=== PATIENT | female | born 1985 | race Hispanic/Latino ===

== ENCOUNTER → 2019-09-09 15:04 | Outpatient (CLI) | payer OTHER, SELFPAY ==
[2019-09-10 12:32] LABS: Strep Grp B PCR NEG for Grp B Strep
== END ==
PROVIDERS: PCP Naturopath; Visit Provider Obstetrics & Gynecology
DX: Z34.83 Encounter for supervision of other normal pregnancy, third trimester (principal)
CPT/HCPCS: 87653

== ENCOUNTER 2019-09-20 13:16 | Observation (INO) | payer OTHER, SELFPAY ==
--- NOTE | 2019-09-20 16:04 | PM.OBTRLD ---
Visit Information Visit Information Date of evaluation: 09/20/19 Primary OB Provider: Yen Tony Reason for Evaluation: Yes non-stress test Comments/Additional reasons for admission: This patient is a 34yo 002 at 35 and 1 presenting to labor and delivery emergently from clinic after being found to have a heart rate in the 90s at the end of a BPP. Patient had an 8/ BPP in the office, repeat heart rate check of 93 prompted transfer to Labor and delivery for NST. Patient otherwise feeling well, no complaints obstetrical or otherwise, complicated only by late transfer of care. Patient has a history of 2 prior vaginal deliveries. [facility] Medical History Heart murmur (Acute) Surgical History [place] teeth removed (Acute ~2004) Family History Mother Heart disease Kidney disease Autoimmune disease Father Heart disease Hypertension H/O mitral valve replacement Grandmother Heart disease Diabetes mellitus Hypertension Grandfather Prostate CA Kidney disease Grandfather No problems noted. Social History marital status: household members: spouse and children pets and animals: Yes (Dog) education level: master's degree occupational status: employed current occupational exposures/hazards: No special alfonso needs: No Review of Systems Constitutional Constitutional: Reports system reviewed and no additional complaints, except as documented Cardiovascular Cardiovascular: Reports system reviewed; no additional complaints, except as documented Respiratory Respiratory: Reports system reviewed and no additional complaints, except as documented Gastrointestinal Gastrointestinal: Reports system reviewed and no additional complaints, except as documented Genitourinary Genitourinary: Reports system reviewed and no additional complaints, except as documented Exam Vital Signs (past 8 hours): 134/77, HR 84 Const General: cooperative, healthy appearing and comfortable GI Palpation: soft and No tender Evaluation Evaluation Baseline heart rate: 130 Variability: Average (6-10) monitor accelerations: Present monitor decelerations: Absent Category of Tracing: I Cervical dilation (cm): 0 Comments: Periods of prolonged accels and marked variability early in monitoring period, resolved to above. Diagnosis, Plan/Disposition Plan/Disposition Plan: Patient with reassuring testing, suspect initial measurement as variable in the setting of copious movement. Patient educated on kick counts and discharged with scheduled outpatient followup. OB Disposition: home
== END 2019-09-20 17:23 | disposition home or self-care (01) ==
PROVIDERS: Admitting Provider Obstetrics & Gynecology; PCP Naturopath; Visit Provider Obstetrics & Gynecology
DX: O36.8330 Maternal care for abnormalities of the fetal heart rate or rhythm, third trimester, not applicable or unspecified (principal); Z3A.35 35 weeks gestation of pregnancy
CPT/HCPCS: 59025; G0378; G0379

== ENCOUNTER 2019-10-04 14:28 | Observation (INO) | payer OTHER, SELFPAY ==
[2019-10-04 15:17] LABS: Add Manual Diff / Slide Review NO; Basophils Absolute Auto 0 /uL (0-100); Basophils Percent Auto 0.4 % (0-2); Eosinophils Absolute Auto 0 /uL (0-450); Eosinophils Percent Auto 0.3 % (2-4); Hematocrit 37.4 % (36-46); Hemoglobin 12.5 g/dL (12.0-16.0); Lymphocytes Absolute Auto 1700 /uL (1100-4500); Lymphocytes Percent Auto 18.2 % (25-40); Mean Corpuscular HGB Conc 33.6 % (30-36); Mean Corpuscular Hemoglobin 30.3 PG (26-34); Mean Corpuscular Volume 90.3 fL (80-100); Monocytes Absolute Auto 400 /uL (0-900); Monocytes Percent Auto 4.2 % (3-14); Neutrophils Absolute Auto 7000 /uL (1500-7000); Neutrophils Percent Auto 76.9 % (50-75); Platelet Count 186 X10^3/uL (150-400); Red Blood Cell Count 4.14 X10^6/uL (4.0-5.2); Red Cell Distribution Width 14.3 % (11.6-14.8); White Blood Cell Count 9.1 X10^3/uL (4.5-11.0)
[2019-10-04 15:34] LABS: Aspartate Aminotransferase 30 IU/L (14-36); BUN Creatinine Ratio 21.3 (6-22); Blood Urea Nitrogen 17 mg/dL (7-17); Estimated Glomerular Filt Rate > 60.0 mL/min (>60); Uric Acid 5.1 mg/dL (2.5-6.2)
[2019-10-04 16:05] LABS: Protein (Total) Urine Random 10 mg/dL (0-12); Protein Creatinine Ratio Urine 0.23 GRAM/24H
--- NOTE | 2019-10-04 19:48 | PM.OBTRLD ---
Visit Information Visit Information Date of evaluation: 10/04/19 Primary OB Provider: Yen Tony Reason for Evaluation: Yes other Comments/Additional reasons for admission: This patient is a 34yo @38+5 presenting from the office for evaluation for gestational hypertension after blood pressure of 150s over 80s. The patient reports increased facial and hand swelling, headaches this morning that resolved, but no obstetrical complaints. She denies visual changes or right upper quadrant pain. She has no history of -induced or other hypertension. His had an otherwise uncomplicated . [facility] Social History marital status: household members: spouse and children pets and animals: Yes (Dog) education level: master's degree occupational status: employed current occupational exposures/hazards: No special alfonso needs: No Smoking Status: Never smoker Review of Systems Constitutional Constitutional: Reports as per HPI Gastrointestinal Gastrointestinal: Reports as per HPI Genitourinary Genitourinary: Reports as per HPI Exam Vital Signs (past 8 hours): Blood pressures 120s to 130s/80s, Objective Labs Result Diagrams: 10/04/19 14:50 10/04/19 14:50 Labs: Laboratory Results - last 24 hr 10/04/19 10/04/19 10/04/19 14:50 14:50 14:50 WBC 9.1 RBC 4.14 Hgb 12.5 Hct 37.4 MCV 90.3 MCH 30.3 MCHC 33.6 RDW 14.3 Plt Count 186 Neut % (Auto) 76.9 H Lymph % (Auto) 18.2 L [place] % (Auto) 4.2 Eos % (Auto) 0.3 L Baso % (Auto) 0.4 Neut # (Auto) 7000 Lymph # (Auto) 1700 [place] # (Auto) 400 Eos # (Auto) 0 Baso # (Auto) 0 BUN 17 Creatinine 0.80 Estimated GFR > 60.0 BUN/Creatinine Ratio 21.3 Uric Acid 5.1 AST 30 U Random Total Protein 10 Urine Creatinine 43.0 Protein/Creatinin Ratio 0.23 Evaluation Evaluation Baseline heart rate: 140 Variability: Average (6-10) monitor accelerations: Present monitor decelerations: Absent Category of Tracing: I Laboratory results: Laboratory Tests 10/04/19 10/04/19 10/04/19 14:50 14:50 14:50 WBC 9.1 RBC 4.14 Hgb 12.5 Hct 37.4 MCV 90.3 MCH 30.3 MCHC 33.6 RDW 14.3 Plt Count 186 Neut % (Auto) 76.9 H Lymph % (Auto) 18.2 L [place] % (Auto) 4.2 Eos % (Auto) 0.3 L Baso % (Auto) 0.4 Neut # (Auto) 7000 Lymph # (Auto) 1700 [place] # (Auto) 400 Eos # (Auto) 0 Baso # (Auto) 0 BUN 17 Creatinine 0.80 Estimated GFR > 60.0 BUN/Creatinine Ratio 21.3 Uric Acid 5.1 AST 30 U Random Total Protein 10 Urine Creatinine 43.0 Protein/Creatinin Ratio 0.23 Comments: 06/13 BPP, NEYMAR 7.1 Diagnosis, Plan/Disposition Plan/Disposition Plan: Patient does not currently meet criteria for gestational hypertension, with no elevated blood pressures 4 hours apart, normal labs, normal testing. Discussed with patient that she should return tomorrow for blood pressure check, and should return if her symptoms develop or if new complaints arise. Patient vocalized understanding of risks and benefits. Discussed with patient that if she meets criteria, induction is indicated. OB Disposition: home
== END 2019-10-04 17:15 | disposition home or self-care (01) ==
PROVIDERS: Admitting Provider Obstetrics & Gynecology; PCP Naturopath; Visit Provider Obstetrics & Gynecology
DX: O26.893 Other specified pregnancy related conditions, third trimester (principal); R03.0 Elevated blood-pressure reading, without diagnosis of hypertension; Z3A.39 39 weeks gestation of pregnancy
CPT/HCPCS: 36415; 59025; 59050; 76815; 82570; 84156; 84450; 84550; 85025; G0378; G0379

== ENCOUNTER 2019-10-05 09:06 | Observation (INO) | payer OTHER, SELFPAY ==
--- NOTE | 2019-10-05 10:29 | PM.OBTRLD ---
Visit Information Visit Information Date of evaluation: 10/05/19 Primary OB Provider: Yen Tony Reason for Evaluation: Yes non-stress test Comments/Additional reasons for admission: This patient is a 34yo P2 @38+6 presenting for an NST and blood pressure check. The patient reports mild PLATA this AM that resolved with food, unchanged swelling, visual changes only transiently on standing from leaning over, and no other obstetrical complaints. The patient has had one BP during this admission that is 140 systolic, making the diagnosis of gestational hypertension, but had labs <24 hours ago and did not meet diagnostic criteria for preeclampsia. The patient is aware of the risks of gestational hypertension and preeclampsia at term, and strongly desires to defer induction through the weekend until the arrival of her spouse on Monday. We discussed precautions for return including persistent PLATA, visual changes, decreased movement, or signs of labor, and the patient vocalized understanding. [facility] Medical History Heart murmur (Acute) Surgical History [place] teeth removed (Acute ~2004) Family History Mother Heart disease Kidney disease Autoimmune disease Father Heart disease Hypertension H/O mitral valve replacement Grandmother Heart disease Diabetes mellitus Hypertension Grandfather Prostate CA Kidney disease Grandfather No problems noted. Social History marital status: household members: spouse and children pets and animals: Yes (Dog) education level: master's degree occupational status: employed current occupational exposures/hazards: No special alfonso needs: No Review of Systems Constitutional Constitutional: Reports system reviewed and no additional complaints, except as documented Cardiovascular Cardiovascular: Reports system reviewed; no additional complaints, except as documented Respiratory Respiratory: Reports system reviewed and no additional complaints, except as documented Gastrointestinal Gastrointestinal: Reports system reviewed and no additional complaints, except as documented Genitourinary Genitourinary: Reports system reviewed and no additional complaints, except as documented Exam Const General: cooperative, healthy appearing and comfortable Other: welling visibly less than yesterday Resp Effort & Inspection: normal respiratory effort Auscultation: clear to auscultation bilaterally Cardio Rate: regular rate Rhythm: regular rhythm GI Palpation: soft and No tender Evaluation Evaluation Baseline heart rate: 140 Variability: Average (6-10) monitor accelerations: Present monitor decelerations: Variable (x1) Category of Tracing: I Comments: BPP 8/, NEYMAR 5.1, cephalic presentation Diagnosis, Plan/Disposition Plan/Disposition Plan: This patient has a diagnosis of gestational hypertension, with a decreasing NEYMAR. However, the patient does not meet diagnostic criteria for preeclampsia, and has reassuring features during her testing today and an NEYMAR of 5.1. I discussed with the patient at length that the ACOG guideline would be to deliver since she is at term, and my concerns about her clinical trajectory and the risks of being . We also discussed that there are reassuring features such as the moderate variability and accels on EFM, the NEYMAR remaining above 5, and the otherwise reassuring BPP. We discussed the risks of gHTN including progression to preeclampsia or eclampsia, and maternal risks. The patient vocalized understanding of these risks and benefits, and strongly desires to delay induction until the arrival of her spouse on Monday. After discussion, the patient will return to L&D tomorrow for further testing, anticipating induction tomorrow PM with vaginal cytotec. We discussed precautions for return at length, including maternal symptoms and signs of status such as kick count. The patient vocalized understanding and will return with any change in her clinical status. OB Disposition: home
== END 2019-10-05 12:00 | disposition home or self-care (01) ==
LOC: LABOR 09:09
PROVIDERS: Admitting Provider Obstetrics & Gynecology; PCP Naturopath; Referring Provider Obstetrics & Gynecology; Visit Provider Obstetrics & Gynecology
DX: O13.3 Gestational [pregnancy-induced] hypertension without significant proteinuria, third trimester (principal); Z3A.38 38 weeks gestation of pregnancy
CPT/HCPCS: 59025; 59050; 76815; G0378; G0379

== ENCOUNTER 2019-10-06 18:06 | Inpatient (IN) | payer OTHER, SELFPAY ==
--- NOTE | 2019-10-06 18:08 | P.HPOB_ITS ---
OB HPI Date/Time Date of admission: 10/06/19 Date Patient Seen: 10/06/19 Time Patient Seen: 18:15 History of Present Condition Chief complaint: OBSERVATION : 3 Para: 2 Estimated Date of Delivery: 10/13/19 Estimated Gestational Age (weeks): 39 Narrative: Micheline Khan is a 34 year old @39+0 presenting for induction of labor for gestational hypertension. She reports an intermittent headache today and fatigue, but denies headache at the time of admission, visual changes, chest pain, trouble breathing, right upper quadrant pain, decreased frequency of movement, loss of fluid, vaginal bleeding, or contractions. She does report that movement is decreased in intensity this afternoon. The patient has had a previously uncomplicated , and has a history of 2 prior vaginal deliveries. She has no history of -induced hypertensive disorders, gestational diabetes, or any other complications obstetrical or otherwise. She has no contributory medical or surgical history, no contributory family history, and has had good and regular care. She is proven to 8 lb 14 oz, and this baby weighs approximately 8 lb. The patient's care has been complicated by multiple transfers of care: She initiated care in [place], then transferred to the [facility] when her partner was transferred, then transferred care to [facility] at the end of her 33rd week. Records review indicated no prior complications, consistent with reports per patient. Indications Indication for induction OB: medical complication (Gestational hypertension) History of Present care: good care Dating criteria: LMP confirmed by 1st trimester US Obstetrical complications: gestational hypertension Medical complications: none Preadmission Labs Blood type: O (+) positive -: Antibody screen: negative, GBS status: negative, HBsAG: negative, HIV: negative and RPR/VDLR: negative -: Rubella: unknown and Varicella: immune Prior (ies) History: G1: 02/2012, 40 wks, 8#14, F, , uncomplicated G2: 09/2017, 40+2, 8#9, F, , uncomplicated Evaluation Evaluation Baseline heart rate: 150 Variability: Average (6-10) monitor accelerations: Present monitor decelerations: Absent Category of Tracing: I Cervical dilation (cm): 1 Cervical effacement (%): 50 station: -3 Comments: EFW 8 lb 4 oz PFSH Medical History Heart murmur (Acute) Vaginal delivery (Acute) Surgical History [place] teeth removed (Acute ~2004) Family History Mother Heart disease Kidney disease Autoimmune disease Father Heart disease Hypertension H/O mitral valve replacement Grandmother Heart disease Diabetes mellitus Hypertension Grandfather Prostate CA Kidney disease Grandfather No problems noted. Social History marital status: household members: spouse and children pets and animals: Yes (Dog) education level: master's degree occupational status: employed current occupational exposures/hazards: No special alfonso needs: No Meds Home Medications and Allergies Allergies Allergy/AdvReac Type Severity Reaction Status Date / Time No Known Drug Allergies Allergy Verified 08/21/19 16:38 Review of Systems Constitutional Constitutional: Reports system reviewed and no additional complaints, except as documented Cardiovascular Cardiovascular: Reports system reviewed; no additional complaints, except as documented Respiratory Respiratory: Reports system reviewed and no additional complaints, except as documented Gastrointestinal Gastrointestinal: Reports system reviewed and no additional complaints, except as documented Genitourinary Genitourinary: Reports system reviewed and no additional complaints, except as documented Musculoskeletal Musculoskeletal: Reports system reviewed; no additional complaints, except as documented Neurologic Neurologic: Reports as per HPI Hematologic/Lymphatic Hematologic/Lymphatic: Reports system reviewed and no additional complaints, except as documented Exam Vital Signs (past 8 hours): 154/88, repeat 135/89 pulse 91 Const General: cooperative, healthy appearing and comfortable Orientation: alert, awake and oriented x3 Other: Patient resting in bed, smiling. No change in facial or hand swelling since yesterday. Resp Effort & Inspection: normal respiratory effort Auscultation: clear to auscultation bilaterally Cardio Rate: regular rate Rhythm: regular rhythm GI Palpation: soft and No tender External Female Exam: external appearance normal Skin General: no rashes or lesions noted Neuro General: alert, awake and oriented x3 Cranial Nerves: CN's II-XI intact bilaterally Gait: normal gait DTR's: Rt Patellar: 1+ and Lt Patellar: 1+ Extrem Right upper extremity: edema (Trace) Left upper extremity: edema (Trace) Right lower extremity: edema Details: 2+ Left lower extremity: edema Details: 2+ Assessment and Plan Assessment and Plan Assessment and Plan narrative: This patient is a 34yo @39+0 presenting for induction of labor for gestational hypertension. She reports fatigue and PLATA this AM, though no persistent neurologic symptoms indicating preeclampsia with severe features. Preeclampsia labs will be repeated, and we discussed the importance of notifying nursing staff of headaches, visual changes, or any other symptoms. We reviewed the criteria for severe preeclampsia and the risks of labor with a preeclamptic fetus, as discussed at prior visits. The patient and her mother vocalized understanding. - Preeclampsia panel, T&S, Urine protein/creatinine ratio, rubella ab (result not in scanned outside records) - cervadil placed at 18:30, out at 06:30 - continuous monitoring - BPs q1 hr - repeat BP in 15 min if >160 systolic or >110 diastolic, sustained if continues to be above this severe range or 2 severe range BPs in 1 hour. nursing to immediately notify provider of severe range pressures, discussed magnesium anticipatory guidance with patient.
[2019-10-06 19:39] VITALS: BP 135/89
[2019-10-06] MEDS: DINOPROSTONE VAG (CERVIDIL) 10 MG VAG (19:40)
[2019-10-06 19:57] LABS: Creatinine Urine Random 36.9 mg/dL; Protein (Total) Urine Random 11 mg/dL (0-12); Protein Creatinine Ratio Urine 0.29 GRAM/24H
[2019-10-06 20:26] LABS: Add Manual Diff / Slide Review NO; Basophils Absolute Auto 100 /uL (0-100); Basophils Percent Auto 0.6 % (0-2); Eosinophils Absolute Auto 100 /uL (0-450); Eosinophils Percent Auto 0.6 % (2-4); Hematocrit 38.4 % (36-46); Hemoglobin 12.9 g/dL (12.0-16.0); Lymphocytes Absolute Auto 1800 /uL (1100-4500); Lymphocytes Percent Auto 20.2 % (25-40); Mean Corpuscular HGB Conc 33.7 % (30-36); Mean Corpuscular Hemoglobin 30.3 PG (26-34); Mean Corpuscular Volume 89.8 fL (80-100); Monocytes Absolute Auto 500 /uL (0-900); Monocytes Percent Auto 5.6 % (3-14); Neutrophils Absolute Auto 6500 /uL (1500-7000); Platelet Count 192 X10^3/uL (150-400); Red Blood Cell Count 4.28 X10^6/uL (4.0-5.2); Red Cell Distribution Width 14.3 % (11.6-14.8); White Blood Cell Count 8.9 X10^3/uL (4.5-11.0)
[2019-10-06 21:13] LABS: Aspartate Aminotransferase 26 IU/L (14-36); BUN Creatinine Ratio 22.2 (6-22); Blood Urea Nitrogen 20 mg/dL (7-17); Estimated Glomerular Filt Rate > 60.0 mL/min (>60); Uric Acid 5.2 mg/dL (2.5-6.2)
--- NOTE | 2019-10-07 03:05 | PM.OBPRVD ---
 Events: Induced HTN Labor & Delivery Delivery date: 10/07/19 Intrapartal events: Precipitous Labor < 3 hours Cervical ripening method: per Cervidil protocol Route of delivery: L&D Laceration Description: None Estimated blood loss (mL): 100 Narrative: This patient is a 34-year-old G3 now P3 day 0, status post induction of labor with 8 hours of Cervidil for gestational hypertension. Patient presented to Labor and delivery 1 cm, 50% effaced, -3, Cervidil was placed, patient went into precipitous labor 8 hours later and promptly delivered a healthy baby girl, Apgars 9 and 9, weight 8#9, over an intact perineum with no nuchal cord assisted by nursing staff. The placenta delivered spontaneously, no laceration repair was required, mom remained intermittently hypertensive but below the severe range with no other preeclampsia symptoms, and there were no immediate complications. [place] Baby 1: Infant gender: Female Presentation: vertex Placenta delivery description: Spontaneous cord vessel description: 3 Vessels score (1 min): 9 score (5 min): 9 Plan for aftercare: Routine care, augmented blood pressure checks and close monitoring for preeclampsia symptoms.
[2019-10-07] MEDS: OXYTOCIN 10 UNIT/ML VIAL 20 UNIT (03:15)
[2019-10-07] MEDS: DOCUSATE 100 MG CAPSULE PO (07:52)
[2019-10-07] MEDS: IBUPROFEN 600 MG TABLET PO ×2 (07:52→14:27)
--- NOTE | 2019-10-07 10:51 | P.PNOB_ITS ---
Subjective - OB Subjective Patient comments: no complaints and pain well controlled [place] baby status: doing well and nursing well feeding status: exclusively breast feeding Narrative: This patient is a 34-year-old now para 3 day 0 status post a vaginal delivery after induction of labor for gestational hypertension with Cervidil. The patient reports that she has no headaches, visual changes, right upper quadrant pain, or any other complaints obstetrical or otherwise. Lochia is mild to moderate, cramping is well controlled, patient is ambulating, tolerating p.o., voiding normally. Date Patient Seen: 10/07/19 Time Patient Seen: 08:30 Exam Vital Signs (past 8 hours): BPs 140s-150s/80s-90s, HR 80s Const General: cooperative, healthy appearing and comfortable Resp Effort & Inspection: normal respiratory effort Auscultation: clear to auscultation bilaterally Cardio Rate: regular rate Rhythm: regular rhythm GI Palpation: soft and No tender Other: Fundus firm, 2 below U External Female Exam: external appearance normal Objective Labs Result Diagrams: 10/06/19 20:00 10/06/19 20:38 Labs: Laboratory Results - last 24 hr 10/06/19 10/06/19 10/06/19 18:45 20:00 20:00 WBC 8.9 RBC 4.28 Hgb 12.9 Hct 38.4 MCV 89.8 MCH 30.3 MCHC 33.7 RDW 14.3 Plt Count 192 Neut % (Auto) 73.0 Lymph % (Auto) 20.2 L [place] % (Auto) 5.6 Eos % (Auto) 0.6 L Baso % (Auto) 0.6 Neut # (Auto) 6500 Lymph # (Auto) 1800 [place] # (Auto) 500 Eos # (Auto) 100 Baso # (Auto) 100 BUN Creatinine Estimated GFR BUN/Creatinine Ratio Uric Acid AST U Random Total Protein 11 Urine Creatinine 36.9 Protein/Creatinin Ratio 0.29 Blood Type O Positive Antibody Screen Negative 10/06/19 20:38 WBC RBC Hgb Hct MCV MCH MCHC RDW Plt Count Neut % (Auto) Lymph % (Auto) [place] % (Auto) Eos % (Auto) Baso % (Auto) Neut # (Auto) Lymph # (Auto) [place] # (Auto) Eos # (Auto) Baso # (Auto) BUN 20 H Creatinine 0.90 Estimated GFR > 60.0 BUN/Creatinine Ratio 22.2 H Uric Acid 5.2 AST 26 U Random Total Protein Urine Creatinine Protein/Creatinin Ratio Blood Type Antibody Screen Assessment & Plan Plan day: 0 plan OB: routine care Comments: This patient is recovering well, meeting goals, no signs or symptoms of severe preeclampsia. Patient will remain in house until tomorrow for further blood pressure monitoring. Discussed signs and symptoms and plan of care with patient, all questions were answered. Time Spent With Patient Time: Total time spent is greater than 50% in coordination of care (as documented) at patient's floor/unit and/or counseling patient: Time with patient: 15-24 minutes
[2019-10-07 18:52] LABS: Rubella Antibody IgG 44.9 IU/mL (>15)
[2019-10-08] MEDS: IBUPROFEN 600 MG TABLET PO ×3 (06:30→12:32)
--- NOTE | 2019-10-08 08:49 | PM.OBPN.1 ---
Subjective - OB Subjective Patient comments: no complaints and pain well controlled [place] baby status: doing well feeding status: exclusively breast feeding Narrative: This patient is a 34-year-old now para 3 day 1 status post vaginal delivery after induction of labor for gestational hypertension. The patient reports feeling well with no PIH symptoms, is meeting goals well. The patient's blood pressures are intermittently 150 over 90s, though no severe range pressures. Date Patient Seen: 10/08/19 Time Patient Seen: 08:50 Exam Vital Signs (past 8 hours): 150s/90s, no severe range BPs, HR 70s-80s Const General: cooperative, healthy appearing and comfortable Resp Effort & Inspection: normal respiratory effort Auscultation: clear to auscultation bilaterally Cardio Rate: regular rate Rhythm: regular rhythm GI Palpation: soft and No tender Other: Fundus firm, well below u Objective Labs Result Diagrams: 10/06/19 20:00 10/06/19 20:38 Labs: Laboratory Results - last 24 hr 10/06/19 20:38 Rubella Antibody 44.9 Assessment & Plan Plan day: 1 plan OB: routine care Comments: We discussed the patient is going home to large extended family and 2 small older children, and the patient will start at 30 mg of XL nifedipine today, be monitored in Labor and delivery for several more hours, and then go home with frequent blood pressure checks in clinic. We discussed symptoms of both hypotension and worsening preeclampsia and precautions for return. All questions were answered, and the patient and her partner Time Spent With Patient Time: Total time spent is greater than 50% in coordination of care (as documented) at patient's floor/unit and/or counseling patient: Time with patient: 15-24 minutes
--- NOTE | 2019-10-08 08:55 | PM.OBDS.1 ---
Discharge Providers Provider Date of admission: 10/06/19 18:06 Discharge Date: 10/08/19 Primary care physician: Alfred Yang Consults: 10/08/19 03:04 Consult to Echocardiograph Technician Routine Comment: Discharge provider: Yen Tony MD Summary Hospital Course Date Patient Seen: 10/08/19 Time Patient Seen: 08:45 Hospital Course: This patient was diagnosed with gestational hypertension, and presented to the hospital for induction of labor at 39 weeks. As her cervix was unfavorable, Cervidil was placed. The patient went into labor after placement of the Cervidil, rapidly progressed through the active and 2nd stage, and was delivered of a healthy baby girl precipitously without incident. The patient's blood pressures continued to be elevated but below the severe range, and she did not meet diagnostic criteria for preeclampsia. The patient was started on 30 mg of p.o. XL nifedipine for blood pressure control, and discharged with plans for close blood pressure monitoring in the clinic. The patient's recovery was otherwise uneventful. Peripartum Data Infant Delivery Method: Natural Vaginal Laceration description: None Status at Discharge Cognitive/behavioral status at discharge: oriented Functional status at discharge: independent ambulation Overall status at discharge: patient is progressing back to baseline Time Spent with Patient Time attestation: Total time spent providing and/or coordinating discharge services: Time spent: Greater than 30 minutes Objective Labs Result Diagrams: 10/06/19 20:00 10/06/19 20:38 Labs: Laboratory Results - last 24 hr 10/06/19 20:38 Rubella Antibody 44.9 Discharge Plan Discharge Plan Patient Disposition: Home Discharge orders & Medications Prescriptions: New ibuprofen 600 mg tablet 600 mg PO Q8H PRN (Reason: Vaginal delivery) Qty: 20 RF: 0 nifedipine 30 mg tablet extended release 30 mg PO DAILY Qty: 30 RF: 0 Follow up/Referrals: Yen Tony MD [Physician] - 2 Weeks (please follow up w/ Dr. Tony office for a BP check this Oct.10 @ 2:30pm and again on @ 2pm) Alfred Yang [Primary Care Provider] - Diet/Activity/Treatments Diet: Regular Activity: Nothing in the vagina for 6 weeks. Avoid heavy lifting for 6 weeks. If you headaches, visual changes, dizziness, heart palpitations, fevers, chills, or any other symptoms, call or come to the emergency room. Visit Report/Discharge Packet Instructions: Pre-eclampsia, DI for Labor and Delivery, Vaginal Stand Alone Forms: Discharge: Care Discharge Data Primary Care Provider: Alfred Yang
[2019-10-08] MEDS: NIFEdipine 30 MG TAB ER PO (09:11)
[2019-10-08] MEDS: DOCUSATE 100 MG CAPSULE PO (09:11)
== END 2019-10-08 13:33 | disposition home or self-care (01) | DRG 807 ==
PROVIDERS: Admitting Provider Obstetrics & Gynecology; PCP Naturopath; Referring Provider Obstetrics & Gynecology; Visit Provider Obstetrics & Gynecology
DX: O13.4 Gestational [pregnancy-induced] hypertension without significant proteinuria, complicating childbirth (principal); Z37.0 Single live birth; O62.3 Precipitate labor; Z3A.39 39 weeks gestation of pregnancy
CPT/HCPCS: 36415; 59050; 59200; 59410; 82570; 84156; 84450; 84550; 85025; 86762; 86850; 86900; 86901; G0379; J2590

== ENCOUNTER → 2024-11-01 07:43 | Outpatient (CLI) | payer OTHER, SELFPAY ==
--- NOTE | 2024-11-01 07:45 | DI.NM.S_ITS ---
PROCEDURE: NM EXERCISE TREADMILL NON NUC COMPARISON: None. INDICATIONS: PALPITATIONS FINDINGS: Patient exercised per the standard [facility] protocol. Total exercise time was 9 minutes and 23 seconds. Test was terminated secondary to fatigue. Maximal heart rate obtained is 167 bpm which is 91% of max impacted heart rate. Maximum blood pressure was 140/84[place] [id number]. AR[place] -2%. 10.1 METS. No ischemic changes noted. No arrhythmias present. No chest pains voiced. Normal heart rate and blood pressure response to exercise. IMPRESSION: 1. Negative exercise treadmill stress test for ischemia. 2. Average exercise tolerance. Dictated by: Aron Soto M.D. on 11/01/2024 at 16:43 Approved by: Aron Soto M.D. on 11/01/2024 at 16:44
== END ==
PROVIDERS: PCP Naturopath; Referring Provider Internal Medicine; Visit Provider Internal Medicine
DX: R00.2 Palpitations (principal)
CPT/HCPCS: 93017